=== PATIENT | female | born 1975 | race Two or more races ===

== ENCOUNTER → 2019-06-10 | Outpatient (CLI) | payer OTHER | END | disposition home or self-care (01) | LOC: PRENATAL 08:00 | DX: O26.842 Uterine size-date discrepancy, second trimester (principal); O09.212 Supervision of pregnancy with history of pre-term labor, second trimester; O09.522 Supervision of elderly multigravida, second trimester; O99.282 Endocrine, nutritional and metabolic diseases complicating pregnancy, second trimester; Z3A.16 16 weeks gestation of pregnancy; Z36.89 Encounter for other specified antenatal screening ==

== ENCOUNTER → 2019-07-08 | Outpatient (CLI) | payer OTHER | END | disposition home or self-care (01) | LOC: PRENATAL 09:00 | DX: O35.3XX0 Maternal care for (suspected) damage to fetus from viral disease in mother, not applicable or unspecified (principal); O09.292 Supervision of pregnancy with other poor reproductive or obstetric history, second trimester; O60.02 Preterm labor without delivery, second trimester; O09.522 Supervision of elderly multigravida, second trimester; O99.89 Other specified diseases and conditions complicating pregnancy, childbirth and the puerperium; O99.282 Endocrine, nutritional and metabolic diseases complicating pregnancy, second trimester ==